=== PATIENT | female | born 1990 | race Caucasian/White ===

== ENCOUNTER 2016-12-15 11:01 | Emergency (ER) | payer OTHER ==
[~2016-12-15] VITALS: Ht 162.6 cm; Wt 43.5 kg
[~2016-12-15 11:01] MED LIST: PRENTAB62 PO
[2016-12-15 11:02] VITALS: BP 119/83; PULSE 83; RESP 13; TEMP 98.8; O2SAT 98
[2016-12-15] MEDS ORDERED: PRENTAB7 (11:16)
--- NOTE | 2016-12-15 11:31 | PD ---
HPI Chief Complaint: Related Problem Time Seen by Provider: 11:10 Travel History International Travel<30 days: No Contact w/Intl Traveler<30days: No Traveled to known affect area: No History of Present Illness HPI 26-year-old G3 A1 P1 approximately 11 weeks female presents to the emergency room for evaluation of right-sided cramping and spotting. Patient said she had right flank pain 5 days ago that has since developed into right lower quadrant cramping. She had associated pink tinged discharge 5 days ago that developed into spotting yesterday and today. Patient has history of miscarriage around 11 weeks 2 years ago. She denies any other abnormal vaginal discharge. Denies dysuria, urgency, frequency, fever, chills, nausea, vomiting , or diarrhea. Her first OB appointment is in 5 days. She is taking vitamins. No other chronic medical conditions or daily medications. Unknown Rh status. LMP was 10/06/16. PFSH Past Medical History ADHD: No Asthma: Yes Cancer: No Diabetes: No Diminished Hearing: No Gastrointestinal Disorders: Yes (CELIAC ) Psychiatric: No Migraines: Yes Thyroid Disease: No Ulcer: No ?: LMP: 10/06/16 : 2 Para: 1 Ovarian Cysts: Yes Past Surgical History Surgical History: No Previous Surgery Appendectomy: No Cholecystectomy: No Other Surgery: No Social History Alcohol Use: No Tobacco Use: No Substance Use: No Allergies-Medications (Allergen,Severity, Reaction): Coded Allergies: barley (Unverified Allergy, Intermediate, 12/15/16) malt extract (Unverified Allergy, Intermediate, 12/15/16) wheat (Unverified Allergy, Intermediate, 12/15/16) Reported Meds & Prescriptions Reported Meds & Active Scripts Active Reported Vitamins Tablet (Pnv No.95/Ferrous Fum/Folic AC) 28 Mg Iron-800 Mcg Tablet Review of Systems Except as stated in HPI: all other systems reviewed are Neg Physical Exam Narrative GENERAL: Well-nourished, well-developed female in no acute distress. Afebrile. Ambulatory. SKIN: Focused skin assessment warm/dry. HEAD: Normocephalic. EYES: No scleral icterus. No injection or drainage. NECK: Supple, trachea midline. No JVD or lymphadenopathy. CARDIOVASCULAR: Regular rate and rhythm without murmurs, gallops, or rubs. RESPIRATORY: Breath sounds equal bilaterally. No accessory muscle use. GASTROINTESTINAL: Abdomen soft, non-tender, nondistended. No palpable masses. No guarding. No rebound tenderness. No peritoneal signs. Data Data Last Documented VS Vital Signs Date Time Temp Pulse Resp B/P (MAP) Pulse Ox O2 Delivery O2 Flow Rate FiO2 12/15/16 11:02 98.8 83 13 119/83 (95) 98 Orders Orders Beta Hcg (Quant/Titer) (12/15/16 11:22) Complete Blood Count With Diff (12/15/16 11:22) Basic Metabolic Panel (Bmp) (12/15/16 11:22) Type And Screen (12/15/16 11:22) Us Pelvis (Ques Preg/Ectopic) (12/15/16 ) Urinalysis - C+S If Indicated (12/15/16 11:22) Iv Access Insert/Monitor (12/15/16 11:22) Labs Laboratory Tests Test 12/15/16 11:31 White Blood Count 7.6 TH/MM3 Red Blood Count 3.87 MIL/MM3 Hemoglobin 12.7 GM/DL Hematocrit 35.4 % Mean Corpuscular Volume 91.4 FL Mean Corpuscular Hemoglobin 32.8 PG Mean Corpuscular Hemoglobin Concent 35.8 % Red Cell Distribution Width 12.5 % Platelet Count 311 TH/MM3 Mean Platelet Volume 7.9 FL Neutrophils (%) (Auto) 58.6 % Lymphocytes (%) (Auto) 24.9 % Monocytes (%) (Auto) 7.7 % Eosinophils (%) (Auto) 7.6 % Basophils (%) (Auto) 1.2 % Neutrophils # (Auto) 4.5 TH/MM3 Lymphocytes # (Auto) 1.9 TH/MM3 Monocytes # (Auto) 0.6 TH/MM3 Eosinophils # (Auto) 0.6 TH/MM3 Basophils # (Auto) 0.1 TH/MM3 CBC Comment DIFF FINAL Differential Comment Urine Color LIGHT-YELLOW Urine Turbidity CLEAR Urine pH 6.5 Urine Specific [place] 1.007 Urine Protein NEG mg/dL Urine Glucose (UA) NEG mg/dL Urine Ketones NEG mg/dL Urine Occult Blood MOD Urine Nitrite NEG Urine Bilirubin NEG Urine Urobilinogen LESS THAN 2.0 MG/DL Urine Leukocyte Esterase NEG Urine RBC 1 /hpf Urine WBC 1 /hpf Urine Squamous Epithelial Cells 2 /hpf Urine Bacteria RARE /hpf Microscopic Urinalysis Comment CULT NOT INDICATED Blood Urea Nitrogen 8 MG/DL Creatinine 0.63 MG/DL Random Glucose 84 MG/DL Calcium Level 8.8 MG/DL Sodium Level 139 MEQ/L Potassium Level 3.9 MEQ/L Chloride Level 104 MEQ/L Carbon Dioxide Level 28.2 MEQ/L Anion Gap 7 MEQ/L Estimat Glomerular Filtration Rate 115 ML/MIN Human Chorionic Gonadotropin, Quant 3833 MIU/ML [facility] Medical Decision Making Medical Screen Exam Complete: Yes Emergency Medical Condition: Yes Medical Record Reviewed: Yes Differential Diagnosis Ectopic , subchorionic hemorrhage, threatened miscarriage Narrative Course 26-year-old G3 A1 P1 approximately 11 week by dates female presents to the emergency room for evaluation of right-sided cramping and spotting has been occurring intermittently for the past 5 days. Patient denies any fever, chills , nausea, vomiting, diarrhea, dysuria, urgency, frequency, or significant pain. Vital signs stable. Abdomen soft, nontender. No peritoneal signs. IV access established and basic labs obtained. CBC and BMP are unremarkable. Beta hCG is 3833 which is not consistent with her estimated gestation. UA is unremarkable. Patient is AB+ and does not require RhoGAM. Ultrasound ordered to evaluate for ectopic given patient's bleeding and pain. Ultrasound shows nonviable, intrauterine / demise with subchorionic hemorrhage. Patient was informed and told to follow up with her OB as planned. She understands and agrees to planned. Diagnosis Primary Impression: Miscarriage Referrals: [facility] Additional Instructions: Follow-up with your sports official as planned in 5 days. Return to the emergency room for worsening symptoms. Disposition: 01 DISCHARGE HOME Condition: Stable Ashley Gutierres Dec 15, 2016 11:31
[2016-12-15 11:42] LABS: BACTERIA, URINE RARE /hpf; BLOOD, URINE MOD (NEG); COMMENT (UR) CULT NOT INDICATED; CULTURE IF INDICATED CULT NOT INDICATED; GLUCOSE,URINE NEG (NEG); KETONE, URINE NEG (NEG); NITRITE,URINE NEG (NEG); PH, URINE 6.5 (5.0-8.5); SQUAMOUS EPITHELIAL CELL URINE 2 /hpf (0-5); URINE COLOR LIGHT-YELLOW (YELLW/STRAW)
[2016-12-15 11:44] LABS: AUTOMATED NEUTROPHIL # 4.5 TH/MM3 (1.8-7.7); BASOPHIL # 0.1 TH/MM3 (0-0.2); BASOPHIL % 1.2 % (0.0-2.0); EOSINOPHIL # 0.6 TH/MM3 (0-0.4); EOSINOPHIL % 7.6 % (0.0-4.0); HEMATOCRIT 35.4 % (35.0-46.0); HEMO FLAGS DIFF FINAL; LYMPH % 24.9 % (9.0-44.0); LYMPHOCYTE # 1.9 TH/MM3 (1.0-4.8); MEAN CELL VOLUME 91.4 FL (80.0-100.0); MEAN CORPUSCULAR HEMOGLOBIN 32.8 PG (27.0-34.0); MEAN CORPUSCULAR HGB CONC 35.8 % (32.0-36.0); MONO % 7.7 % (0.0-8.0); NEUT % 58.6 % (16.0-70.0); PLATELET COUNT 311 TH/MM3 (150-450); RED BLOOD COUNT 3.87 MIL/MM3 (4.00-5.30); RED CELL DISTRIBUTION WIDTH 12.5 % (11.6-17.2); WHITE BLOOD COUNT 7.6 TH/MM3 (4.0-11.0)
[2016-12-15 12:01] LABS: BICARBONATE 28.2 MEQ/L (21.0-32.0); POTASSIUM 3.9 MEQ/L (3.5-5.1)
--- NOTE | 2016-12-15 13:37 | RADRPT ---
EXAM DATE/TIME: 12/15/2016 12:38 [place] COMPARISON: No previous studies available for comparison. INDICATIONS : Pelvic pain and bleeding with . LAB(S): Beta-hC MEDICAL HISTORY : . Migraines. Asthma. Celiacs disease. Ovarian cysts. Miscarriage. SURGICAL HISTORY : None. ENCOUNTER: Initial ACUITY: 1 day PAIN SCORE: 2/10 LOCATION: Bilateral pelvis MEASUREMENTS: UTERUS: 10.1 x 7.3 x 5.3 cm ENDOMETRIAL STRIPE: 11 mm RIGHT OVARY: 2.9 x 1.3 x 1.9 cm LEFT OVARY: 2.1 x 1.7 x 1.5 cm FREE FLUID: No CROWN RUMP LENGTH: 1.4 cm = 7 WKS 5 DAYS FHR: Non visualized. BPM FINDINGS: UTERUS: Gestational sac is identified measuring 2.1 x 1.8 x 1.1 cm. Crescentic, complex hypoechoic area adjac ent to the gestational sac is characteristic of a subchorionic hemorrhage. There is a 2.0 x 1.2 x 1.1 cm hypoechoic in the vaginal canal which does not show Doppler flow and probably represents hemorrha ge or products of conception. pole with a crown-rump length of 1.4 cm but no heart motion identified. RIGHT OVARY: Ovary contains no mass or significant cystic lesion. LEFT OVARY: Ovary contains no mass or significant cystic lesion. MISCELLANEOUS: No free fluid. CONCLUSION: Sonographic findings characteristic of demise with in progress. Anthony Vazquez MD on December 15, 2016 at 13:30 Board Certified Radiologist. This report was verified electronically.
== END 2016-12-15 13:52 | disposition home or self-care (01) ==
LOC: NEPD 11:01
DX: O03.9 Complete or unspecified spontaneous abortion without complication (principal); O99.511 Diseases of the respiratory system complicating pregnancy, first trimester; J45.909 Unspecified asthma, uncomplicated; K90.0 Celiac disease; Z3A.11 11 weeks gestation of pregnancy; Z34.91 Encounter for supervision of normal pregnancy, unspecified, first trimester
CPT/HCPCS: 76700; 80048; 81001; 84702; 85025; 86850; 86900; 86901; 99284